=== PATIENT | female | born 1985 | race Caucasian/White ===

== ENCOUNTER → 2020-06-07 12:40 | Outpatient (BNVA) | payer OTHER, SELFPAY | PROVIDERS: Family Provider Family Medicine; PCP Family Medicine; Visit Provider Nurse Practitioner Family | DX: Z20.828 Contact with and (suspected) exposure to other viral communicable diseases (principal); J01.40 Acute pansinusitis, unspecified | CPT/HCPCS: 87071; 87880 ==